=== PATIENT | female | born 1975 | race Caucasian/White ===

== ENCOUNTER 2017-01-01 21:55 | Emergency (ER) | payer OTHER ==
[~2017-01-01] VITALS: Ht 149.9 cm; Wt 122.0 kg
[2017-01-01 21:55] VITALS: BP 131/82
[~2017-01-01 21:55] MED LIST: FLUT10.6 IH; FLUT1DIS3 IH; LOSA25TA4 PO; METF500T4 PO; SPIR25TA3 PO; TOPI25CA6 PO; [UNRECOGNIZED DRUG - OTHER]
--- NOTE | 2017-01-01 23:16 | PHYS DOC ---
Past History Past Medical History: Anxiety, Diabetes, Hypertension Past Surgical History: Other Alcohol Use: None Drug Use: None Adult General Chief Complaint Chief Complaint: PAIN CONTROL HPI HPI Patient is a 41-year-old female who presents here today secondary to a migraine headache. Patient reports that she has a history of chronic lower back pain and history of neck pain. Patient reports that her pain is been increased over the last couple days and she feels that that's exacerbating her migraines. Patient denies any fevers shakes chills nausea vomiting diarrhea cough cold runny nose. Patient reports that the headache is constant. Patient reports identical to her prior migraines. Patient reports that she has multiple allergies. Patient reports that she is to have migraines more frequently however recently they have decreased in intensity and frequency secondary to switching over to a medication called Celebrex. She was told that she should avoid excessive Toradol without. Patient portion of the history of hypertension and diabetes. Patient denies any liver longer kidney problems. Patient does not smoke drink or do drugs. Patient has multiple allergies that have been evaluated. Patient is requesting that she get Toradol and Norflex which has helped her in the past with her migraines. Patient would like to go home sleeping and some rest. Patient reports that she doesn't want any narcotics secondary to severe nausea and vomiting from them. Review of systems: Constitutional: Denies fever or chills Eyes: Denies change in visual acuity, redness, or eye pain HENT: Denies nasal congestion or sore throat All other review systems are negative except as documented in the history of present illness portion. Physical exam: Constitutional: Well developed, well nourished, no acute distress, non-toxic appearance. HENT: Normocephalic, atraumatic, bilateral external ears normal, nose normal. Funduscopic exam Eyes: EOMI, conjunctiva normal, no discharge. Neck: Normal range of motion, no tenderness, supple, no stridor. Cardiovascular:Heart rate regular rhythm Lungs & Thorax: Bilateral breath sounds clear to auscultation no respiratory distress Abdomen: Bowel sounds normal, soft, no tenderness, no masses, no pulsatile masses. Skin: Warm, dry, no erythema, no rash. Back: No tenderness, no CVA tenderness. Extremities: No tenderness, no cyanosis, no clubbing, ROM intact, no edema. Neurologic: Alert and oriented X 3, normal motor function, normal sensory function, no focal deficits noted. Psychologic: Affect normal, judgement normal, mood normal. Assessment and plan: 41-year-old female with a history of migraines presents with a migraine headache. Patient is clinically and hemodynamically stable. Patient was given a shot of Toradol and Norflex IM and reports that she feels slightly improved. Patient will go home and some rest and she will call primary care doctor for assistance in the morning if she has any further problems. Patient does not present with any signs or symptoms of be concerning for a subarachnoid, meningitis, or head trauma. Patient feels comfortable with the plan to be discharged home at this time. Current Medications Current Medications Current Medications Medications (Trade) Dose Ordered Sig/Etselita Start Time Stop Time Status Last Admin Dose Admin Ketorolac Tromethamine (Toradol) 30 mg 1X ONCE 01/01/17 23:30 01/01/17 23:31 Ondansetron HCl (Zofran Odt) 4 mg 1X ONCE 01/01/17 23:30 01/01/17 23:31 Orphenadrine Citrate (Norflex) 60 mg 1X ONCE 01/01/17 23:30 01/01/17 23:31 Allergies Allergies Allergies Coded Allergies Type Severity Reaction Last Updated Verified clindamycin Allergy Severe Anaphylaxis 09/25/15 Yes oxcarbazepine Allergy Severe Swelling 09/25/15 Yes Cephalexin Monohydrate Allergy Intermediate rash 05/08/13 Yes Penicillins Allergy Intermediate Rash 04/27/14 Yes hydrocodone Allergy Intermediate 09/25/15 Yes prochlorperazine edisylate Allergy Intermediate anxiety 05/08/13 Yes prochlorperazine maleate Allergy Intermediate anxiety 05/08/13 Yes sulfamethoxazole Allergy Intermediate rash 05/08/13 Yes trimethoprim Allergy Intermediate rash 05/08/13 Yes Current Patient Data Vital Signs Vital Signs Date Time Temp Pulse Resp B/P (MAP) Pulse Ox O2 Delivery O2 Flow Rate FiO2 01/01/17 21:55 98.3 85 20 98 Room Air EKG EKG [] Radiology/Procedures Radiology/Procedures [] Course & Med Decision Making Course & Med Decision Making Pertinent Labs and Imaging studies reviewed. (See chart for details) [] Dragon Disclaimer Dragon Disclaimer This chart was dictated in whole or in part using Voice Recognition software in a busy, high-work load, and often noisy Emergency Department environment. It may contain unintended and wholly unrecognized errors or omissions. Departure Departure: Impression: Primary Impression: Migraine Additional Impression: Low back pain Referrals: RUBI SMITH MD (PCP) Patient Instructions: Chronic Back Pain, Low Back Sprain with Rehab-[facility], Migraine Headache Additional Instructions: Thank you for allowing us to participate in your care today. Followup with your primary care physician in 3 days if your symptoms do not improve. Call your Primary Doctor tomorrow and inform them of your visit today. If you do not have a primary care provider you can ask for a list of our primary care providers. Return to the emergency department you have any new or concerning findings. This should be evaluated by the primary care physician and any necessary consulting services for continued management within a few days after discharge. Return to emergency room if you have any new or concerning symptoms including but not limited to fever, chills, nausea, vomiting, intractable pain, any new rashes, chest pain, shortness of air, uncontrolled bleeding, difficulty breathing, and/or vision loss. You may have been prescribed medication that can change in your level of thinking and ability to operate machinery. These medications include hydrocodone and Ativan. Also, Benadryl has been known to do this as well. Be sure to check with your pharmacist and ask if the medications you've prescribed can affect your level of consciousness. I recommend not operating heavy machinery or driving while on medication such as these. Problem Qualifiers GORDON KIRKPATRICK MD Jan 01, 2017 23:16
[2017-01-01] MEDS ORDERED: ORPHENADRINE CITRATE 60 MG/2 ML VIAL. IM ONE (23:30)
[2017-01-01] MEDS ORDERED: KETOROLAC 30 MG/ML VIAL. IV ONE (23:30)
[2017-01-01] MEDS ORDERED: ONDANSETRON ODT 4 MG TAB.RAPDIS PO ONE (23:30)
[2017-01-01] MEDS ORDERED: KETOROLAC 30 MG/ML VIAL. IM ONE (23:30)
== END 2017-01-01 23:25 | disposition home or self-care (01) ==
LOC: ER 21:55
DX: G89.29 Other chronic pain (principal); M54.5 Low back pain; G43.909 Migraine, unspecified, not intractable, without status migrainosus; M54.2 Cervicalgia; E11.9 Type 2 diabetes mellitus without complications; F41.9 Anxiety disorder, unspecified; I10 Essential (primary) hypertension; Z88.0 Allergy status to penicillin; Z88.1 Allergy status to other antibiotic agents; Z88.5 Allergy status to narcotic agent; Z88.8 Allergy status to other drugs, medicaments and biological substances
CPT/HCPCS: 96372; 99284; J1885; J2360; Q0162

== ENCOUNTER 2017-02-07 19:21 | Emergency (ER) | payer OTHER ==
[~2017-02-07] VITALS: Ht 149.9 cm; Wt 117.8 kg
[2017-02-07] MEDS ORDERED: LIDOCAINE 4% KIT 4 ML SOLUTION. TP ONE (20:00)
[2017-02-07] MEDS ORDERED: FLUC150T PO (20:24)
[2017-02-07] MEDS ORDERED: PRED-220 PO (20:24)
--- NOTE | 2017-02-07 20:24 | PHYS DOC ---
Past History Past Medical History: Anxiety, Asthma, Diabetes, Hypertension Past Surgical History: Appendectomy, Cholecystectomy, Hysterectomy, Tonsillectomy, Other Alcohol Use: None Drug Use: None Adult General Chief Complaint Chief Complaint: COUGH HPI HPI Patient is a 41 year old female who presents with persistent coughing. She has asthma and caught a "cold" one week ago. Saw her PCP and was started on Levaquin then. No oral steroids. She has been doing her nebulizer treatments 4 times a day. She was given tessalon pearles "but they are not working." No fever. Non productive cough. Review of Systems Review of Systems Constitutional: Denies fever or chills Eyes: Denies change in visual acuity, redness, or eye pain HENT: Denies nasal congestion or sore throat Respiratory: POS cough with shortness of breath and wheezing. No hemoptysis. Cardiovascular: Pos rib pain GI: Denies abdominal pain, nausea, vomiting, bloody stools or diarrhea : Denies dysuria or hematuria Musculoskeletal: Denies back pain or joint pain. Integument: Denies rash or skin lesions Neurologic: Denies headache, focal weakness or sensory changes Current Medications Current Medications Current Medications Medications (Trade) Dose Ordered Sig/Estelita Start Time Stop Time Status Last Admin Dose Admin Lidocaine HCl (Lta Kit) 4 ml 1X ONCE 02/07/17 20:00 02/07/17 20:01 DC Allergies Allergies Allergies Coded Allergies Type Severity Reaction Last Updated Verified clindamycin Allergy Severe Anaphylaxis 09/25/15 Yes oxcarbazepine Allergy Severe Swelling 09/25/15 Yes Cephalexin Monohydrate Allergy Intermediate rash 05/08/13 Yes Penicillins Allergy Intermediate Rash 04/27/14 Yes hydrocodone Allergy Intermediate 09/25/15 Yes prochlorperazine edisylate Allergy Intermediate anxiety 05/08/13 Yes prochlorperazine maleate Allergy Intermediate anxiety 05/08/13 Yes sulfamethoxazole Allergy Intermediate rash 05/08/13 Yes trimethoprim Allergy Intermediate rash 05/08/13 Yes Physical Exam Physical Exam Constitutional: Well developed, well nourished, no acute distress, non-toxic appearance. Constant dry cough. HENT: Normocephalic, atraumatic, bilateral external ears normal, oropharynx moist, no oral exudates, nose normal. Eyes: PERRLA, EOMI, conjunctiva normal, no discharge. Neck: Normal range of motion, no tenderness, supple, no stridor. Cardiovascular:Heart rate regular rhythm, no murmur Lungs & Thorax: Bilateral breath sounds clear to auscultation with good air flow. Some rhonchi but no wheezing. Abdomen: Bowel sounds normal, soft, no tenderness, no masses, no pulsatile masses. Skin: Warm, dry, no erythema, no rash. Back: No tenderness, no CVA tenderness. Extremities: No tenderness, no cyanosis, no clubbing, ROM intact, no edema. Neurologic: Alert and oriented X 3, normal motor function, normal sensory function, no focal deficits noted. Current Patient Data Vital Signs Vital Signs Date Time Temp Pulse Resp B/P (MAP) Pulse Ox O2 Delivery O2 Flow Rate FiO2 02/07/17 19:21 98.1 92 28 100 Room Air Course & Med Decision Making Course & Med Decision Making Evaluated patient. Patient's symptoms are consistent with a viral bronchitis. Do not feel a chest x-ray is indicated at this time. She's had a long history of chest x-rays. Informed her that if she would spike a temperature that would be more indication of secondary bacterial infection. Lidocaine nebulized treatment was dosed here to help break her bronchospasm. We'll place her on a steroid pack. Diflucan was written for yeast infection from the antibiotic. Unfortunately I informed the patient at this no quick fix. These viral illnesses need to run their course and to continue a she's doing. Prednisone 60 mg dosed with with Rx for long taper and Diflucan. I have spoken with the patient and/or caregivers. I have explained the patient' s condition, diagnosis and treatment plan based on the information available to me at this time. I have answered the patient's and/or caregiver's questions and addressed any concerns. The patient and/or caregivers have as good an understanding of the patient's diagnosis, condition and treatment plan as can be expected at this point. The patient's condition is stable and appropriate for discharge from the emergency department. The patient will pursue further outpatient evaluation with the primary care physician or other designated or consulting physician as outlined in the discharge instructions. The patient and/or caregivers are agreeable to this plan of care and follow-up instructions have been explained in detail. The patient and/or caregivers have received these instructions in written format and have expressed an understanding of the discharge instructions. The patient and/or caregivers are aware that any significant change in condition or worsening of symptoms should prompt an immediate return to this or the closest emergency department or a call to 911. Dragon Disclaimer Dragon Disclaimer This chart was dictated in whole or in part using Voice Recognition software in a busy, high-work load, and often noisy Emergency Department environment. It may contain unintended and wholly unrecognized errors or omissions. Departure Departure: Impression: Primary Impression: Bronchospasm with bronchitis, acute Disposition: HOME, SELF-CARE Condition: STABLE Referrals: RUBI SMITH MD (PCP) Patient Instructions: Cough, Adult Scripts Prednisone (PREDNISONE) 10 Mg Tablet 10 MG PO UD for PREDNISONE TAPER, #39 TAB 0 Refills Take 3 tablets by mouth twice a day for 3 days, then take 2 tablets by mouth twice a day for 3 days, then take 1 tablet by mouth twice a day for 3 days, then take 1 tablet by mouth daily x 3 days, then stop. Prov: MACY MANN MD 02/07/17 Fluconazole (DIFLUCAN) 150 Mg Tablet 1 TAB PO ONCE, #1 TAB 1 Refill Prov: MACY MANN MD 02/07/17 MACY MANN MD Feb 07, 2017 20:24
[2017-02-07 20:25] VITALS: BP 126/80
[2017-02-07] MEDS ORDERED: predniSONE 20 MG TABLET PO ONE (20:30)
== END 2017-02-07 20:28 | disposition home or self-care (01) ==
LOC: ER 19:21
DX: J20.9 Acute bronchitis, unspecified (principal); I10 Essential (primary) hypertension; E11.9 Type 2 diabetes mellitus without complications; J45.909 Unspecified asthma, uncomplicated; Z88.1 Allergy status to other antibiotic agents; Z88.5 Allergy status to narcotic agent; Z88.0 Allergy status to penicillin; Z88.8 Allergy status to other drugs, medicaments and biological substances
CPT/HCPCS: 94640; 99283; J7512

== ENCOUNTER 2017-11-22 07:56 | Emergency (ER) | payer SELFPAY ==
[~2017-11-22] VITALS: Ht 149.9 cm; Wt 117.8 kg
[~2017-11-22 07:56] MED LIST changes: +FLUC150T PO; -METF500T4 PO; +METF500T5 PO; +PRED-220 PO; -SPIR25TA3 PO; +SPIR25TA5 PO
[2017-11-22 08:10] VITALS: BP 167/98
[2017-11-22] MEDS ORDERED: TRAM50TA PO (08:17)
[2017-11-22] MEDS ORDERED: LEVO500T59 PO (08:17)
--- NOTE | 2017-11-22 08:36 | ED.ADGEN ---
Past History Past Medical History: Diabetes, Hypertension, Other Past Surgical History: Appendectomy, Hysterectomy Alcohol Use: None Drug Use: None Adult General Chief Complaint Chief Complaint Left ear pain/drainage HPI HPI Patient is a 41 year old female presents with left your pain 3 days and drainage from left ear. Patient has history of chronic otitis media and has a left and left T-tube present that was placed approximately 2 years ago. 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 Also reports submandibular pain. No dental pain, or maxillary pain. Reports discolored otorrhea, only minimal clear fluid present next 2 TM on exam. Over fever chills, nausea vomiting or sweats. Does report occasional migraine triggered by earache. Patient has not been evaluated by her primary care physician or ENT her current symptoms. No other acute symptoms or complaints. Previous hysterectomy. [] Review of Systems Review of Systems ROS as per HPI. All other systems were reviewed and found to be within normal limits, except as documented in this note. Allergies Allergies Allergies Coded Allergies Type Severity Reaction Last Updated Verified clindamycin Allergy Severe Anaphylaxis 09/25/15 Yes oxcarbazepine Allergy Severe Swelling 09/25/15 Yes Cephalexin Monohydrate Allergy Intermediate rash 05/08/13 Yes Penicillins Allergy Intermediate Rash 04/27/14 Yes hydrocodone Allergy Intermediate 09/25/15 Yes prochlorperazine edisylate Allergy Intermediate anxiety 05/08/13 Yes prochlorperazine maleate Allergy Intermediate anxiety 05/08/13 Yes sulfamethoxazole Allergy Intermediate rash 05/08/13 Yes trimethoprim Allergy Intermediate rash 05/08/13 Yes Physical Exam Physical Exam Constitutional: Well developed, well nourished, no acute distress, non-toxic appearance. [] HENT: Normocephalic, atraumatic, bilateral external ears normal, left TM, canal , clear, minimal clear otorrhea next opaque, white thickened, tympanic membrane. T-tube present and appears functional, oropharynx moist, no oral exudates, nose normal. No mastoid tenderness.[] Eyes: PERRLA, EOMI, conjunctiva normal, no discharge. [] Neck: Normal range of motion, no tenderness.[] Lungs & Thorax: Bilateral breath sounds clear to auscultation. [] Current Patient Data Vital Signs Vital Signs Date Time Temp Pulse Resp B/P (MAP) Pulse Ox O2 Delivery O2 Flow Rate FiO2 11/22/17 08:10 97.0 93 20 98 Room Air EKG EKG [] Radiology/Procedures Radiology/Procedures [] Course & Med Decision Making Course & Med Decision Making Pertinent Labs and Imaging studies reviewed. (See chart for details) [Chronic otitis media with effusion and otalgia. Will place on antibiotics with instructions to follow-up with local PCP and ENT physician.] Final Impression Final Impression [1. left otalgia 2.otitis media with effusion] Alia Disclaimer Dragon Disclaimer This electronic medical record was generated, in whole or in part, using a voice recognition dictation system. JOSE MALIN DO Nov 22, 2017 08:36
== END 2017-11-22 08:30 | disposition home or self-care (01) ==
LOC: ER 07:56
DX: H65.492 Other chronic nonsuppurative otitis media, left ear (principal); E11.9 Type 2 diabetes mellitus without complications; I10 Essential (primary) hypertension; H91.8X2 Other specified hearing loss, left ear; Z96.22 Myringotomy tube(s) status; Z88.1 Allergy status to other antibiotic agents; Z88.0 Allergy status to penicillin; Z88.5 Allergy status to narcotic agent; Z88.2 Allergy status to sulfonamides; Z88.8 Allergy status to other drugs, medicaments and biological substances
CPT/HCPCS: 99283

== ENCOUNTER 2018-02-22 10:11 | Emergency (ER) | payer SELFPAY ==
[~2018-02-22] VITALS: Ht 149.9 cm; Wt 122.5 kg
[~2018-02-22 10:11] MED LIST changes: +LEVO500T59 PO; -LOSA25TA4 PO; +LOSA25TA5 PO; +METF500T16 PO; -METF500T5 PO; +TRAM50TA PO
[2018-02-22 10:15] VITALS: BP 137/85
[2018-02-22] MEDS ORDERED: LEVO500T59 PO (10:36)
--- NOTE | 2018-02-22 10:36 | PHYS DOC ---
Past History Past Medical History: Diabetes, Hypertension, Other Additional Past Medical Histor: Obesity Past Surgical History: Appendectomy, Hysterectomy Smoking: Non-smoker Alcohol Use: None Drug Use: None Adult General Chief Complaint Chief Complaint: EARACHE/EAR PAIN HPI HPI Patient is a 42-year-old female who presents to the emergency department for evaluation. She states for the past 3-4 days, she has had bilateral otalgia, a mild sore throat. She has developed a mild cough. She has had problems with ear infections in the past which has had tympanostomy tubes in the past. She has not had any fevers or chills, headache, voice changes, difficult breathing, nausea, vomiting. There are no alleviating, or exacerbating factors to her symptoms. Review of Systems Review of Systems Constitutional: Denies fever or chills [] Eyes: Denies change in visual acuity, redness, or eye pain [] HENT: Denies nasal congestion. Reports sore throat [] Respiratory: Denies productive cough or shortness of breath [] Cardiovascular: The patient denies any shortness of breath, chest pain, palpitations, or orthopnea[] GI: Denies abdominal pain, nausea, vomiting, bloody stools or diarrhea [] Musculoskeletal: Denies back pain or joint pain [] Integument: Denies rash or skin lesions [] Neurologic: Denies headache, focal weakness or sensory changes [] Endocrine: Denies polyuria or polydipsia [] Allergies Allergies Allergies Coded Allergies Type Severity Reaction Last Updated Verified clindamycin Allergy Severe Anaphylaxis 09/25/15 Yes oxcarbazepine Allergy Severe Swelling 09/25/15 Yes Cephalexin Monohydrate Allergy Intermediate rash 05/08/13 Yes Penicillins Allergy Intermediate Rash 04/27/14 Yes hydrocodone Allergy Intermediate 09/25/15 Yes prochlorperazine edisylate Allergy Intermediate anxiety 05/08/13 Yes prochlorperazine maleate Allergy Intermediate anxiety 05/08/13 Yes sulfamethoxazole Allergy Intermediate rash 05/08/13 Yes trimethoprim Allergy Intermediate rash 05/08/13 Yes Physical Exam Physical Exam PHYSICAL EXAM: CONSTITUTIONAL: Well developed, well nourished HEAD: normocephalic, atraumatic EENT: PERRL, EOMI. Conjunctivae normal color, sclerae non-icteric; moist mucous membranes. The oropharynx is nonerythematous. There is mild erythema to the tympanic membrane is bilaterally, right greater than left, mild bulging of the right tympanic membrane. The external auditory canals appear normal bilaterally. There is no mastoid tenderness. NECK: Supple, non-tender; no meningismus. Voice is normal. There is mildly tender right greater than left submandibular lymphadenopathy, without laryngeal tenderness to palpation, or soft tissue masses palpable. LUNGS: Lungs CTA, breathing even and unlabored. Normal air movement. HEART: Regular rate and rhythm, no murmur CHEST: No deformity; non-tender ABDOMEN: The abdomen is soft, and non-tender, no masses or bruits. EXTREM: Normal ROM; no deformity, no calf tenderness. Normal pulses palpable in all extremities. There is no pedal edema. SKIN: No rash; no diaphoresis NEURO: Alert; normal speech and cognition; CN's grossly intact; strength grossly intact without focal deficit. BACK: No CVA TTP. EKG EKG [] Radiology/Procedures Radiology/Procedures [] Course & Med Decision Making Course & Med Decision Making I discussed the diagnosis with the patient, home care plan, and return precautions. She states she has multiple antibiotic allergies and tolerates Levaquin well. Dragon Disclaimer Dragon Disclaimer This electronic medical record was generated, in whole or in part, using a voice recognition dictation system. Departure Departure: Impression: Primary Impression: Otitis media Disposition: HOME, SELF-CARE Condition: STABLE Referrals: RUBI SMITH MD (PCP) Patient Instructions: Otitis Media with Effusion Scripts Levofloxacin (LEVAQUIN) 500 Mg Tablet 1 TAB PO DAILY, #10 TAB Prov: LOIS LOWRY MD 02/22/18 LOIS LOWRY MD Feb 22, 2018 10:36
== END 2018-02-22 10:42 | disposition home or self-care (01) ==
LOC: ER 10:11
DX: H66.93 Otitis media, unspecified, bilateral (principal); J02.9 Acute pharyngitis, unspecified; E11.9 Type 2 diabetes mellitus without complications; I10 Essential (primary) hypertension; Z88.1 Allergy status to other antibiotic agents; Z88.0 Allergy status to penicillin; Z88.5 Allergy status to narcotic agent; Z88.8 Allergy status to other drugs, medicaments and biological substances
CPT/HCPCS: 99283

== ENCOUNTER 2018-06-19 22:41 | Emergency (ER) | payer BC ==
[~2018-06-19] VITALS: Ht 149.9 cm; Wt 120.2 kg
[~2018-06-19 22:41] MED LIST changes: +LOSA25TA11 PO; -LOSA25TA5 PO
--- NOTE | 2018-06-19 22:57 | ED.ADGEN ---
Past History Past Medical History: Anxiety, Asthma, Cancer, Diabetes, High Cholesterol, Hypertension, Hypothyroid, Other Additional Past Medical Histor: Obesity Past Surgical History: Appendectomy, Hysterectomy, Tonsillectomy, Other Smoking: Non-smoker Alcohol Use: None Drug Use: None Adult General Chief Complaint Chief Complaint ".. I was bending over my dog (Patron) cage... he is a 85 lb.pit bull...but I caught my foot and fell forwards... and re- injury to my Lt. wrist that is already broke from Monday...and re-injury to my Lt. wrist that is sprained. ... " HPI HPI Patient is a 42 year old female who presents with above hx of trip and fall with re-injury to both wrists. Patient reports previous sprain of both wrist and fracture and left wrist that occurred Monday. Patient has been wearing a Velcro splint on left wrist. She neurovascular appears to be intact. There is no upper arm tenderness. There is no other reported injury to her upper body or abdomen. Patient does have a history of diabetes,hypothyroid, metabolic syndrome , hypertension, anxiety, asthma,. Patient has had previous hysterectomy and cholecystectomy and appendectomy. Patient normally follows with Dr. Marks Review of Systems Review of Systems Constitutional: Denies fever or chills [] Eyes: Denies change in visual acuity, redness, or eye pain [] HENT: Denies nasal congestion or sore throat [] Respiratory: Denies cough or shortness of breath [] Cardiovascular: No additional information not addressed in HPI [] GI: Denies abdominal pain, nausea, vomiting, bloody stools or diarrhea [] : Denies dysuria or hematuria [] Musculoskeletal: Denies back pain. Complaints of bilateral wrist pain Integument: Denies rash or skin lesions [] Neurologic: Denies headache, focal weakness or sensory changes [] Endocrine: Denies polyuria or polydipsia [] All other systems were reviewed and found to be within normal limits, except as documented in this note. Family History Family History Diabetes and hypertension Current Medications Current Medications See nursing for home medications Allergies Allergies Allergies Coded Allergies Type Severity Reaction Last Updated Verified clindamycin Allergy Severe Anaphylaxis 09/25/15 Yes oxcarbazepine Allergy Severe Swelling 09/25/15 Yes Cephalexin Monohydrate Allergy Intermediate rash 05/08/13 Yes Penicillins Allergy Intermediate Rash 04/27/14 Yes hydrocodone Allergy Intermediate 09/25/15 Yes prochlorperazine edisylate Allergy Intermediate anxiety 05/08/13 Yes prochlorperazine maleate Allergy Intermediate anxiety 05/08/13 Yes sulfamethoxazole Allergy Intermediate rash 05/08/13 Yes trimethoprim Allergy Intermediate rash 05/08/13 Yes Physical Exam Physical Exam Constitutional: in acute distress, non-toxic appearance. [] HENT: Normocephalic, atraumatic, bilateral external ears normal, oropharynx moist, no oral exudates, nose normal. [] Eyes: PERRLA, EOMI, conjunctiva normal, no discharge. [] Neck: Normal range of motion, no tenderness, supple, no stridor. [] Enlarged thyroid. Neck circumference More than 17 inches Cardiovascular: Tachycardia Heart rate regular rhythm, no murmur [] Lungs & Thorax: Bilateral breath sounds clear to auscultation [] Abdomen: Bowel sounds normal, soft, no tenderness, no masses, no pulsatile masses. Obese. Old surgery scars. Skin: Warm, dry, no erythema, no rash. [] Back: No tenderness, no CVA tenderness. [] Extremities: Bilateral wrist tenderness, no cyanosis, no clubbing, ROM intact, bilateral wrist edema. [] Patient has marked point tenderness over right scaphoid area. Neurologic: Alert and oriented X 3, normal motor function, normal sensory function, no focal deficits noted. [] Psychologic: Affect anxious, judgement normal, mood normal. [] Current Patient Data Vital Signs Vital Signs Date Time Temp Pulse Resp B/P (MAP) Pulse Ox O2 Delivery O2 Flow Rate FiO2 06/20/18 00:09 92 18 133/73 (93) 96 Room Air 06/19/18 22:45 98.2 EKG EKG [] Radiology/Procedures Radiology/Procedures My interpretation x-ray show[]bilateral edema and what appears to be chip fx's in both wrists. Patient has no comparison views from previous wrist injury. Course & Med Decision Making Course & Med Decision Making Pertinent Labs and Imaging studies reviewed. (See chart for details). Patient to wear splint. Patient keep wrist elevated above heart. Ice packs as needed. Follow-up with primary. Follow-up orthopedics. Tylenol and ibuprofen for pain. Do not wear rings until all edema has resolved from injury and wrist. Distal neurovascular intact post thumb spica Rt. will use Vicryl splint on left. Left is minimal tender, right wrist primary one with pain. Must keep follow up with orthro. [] Final Impression Final Impression 1. Wrist[]-sprains 2. Wrist fractures Dragon Disclaimer Dragon Disclaimer This electronic medical record was generated, in whole or in part, using a voice recognition dictation system. Dragon Disclaimer This chart was dictated in whole or in part using Voice Recognition software in a busy, high-work load, and often noisy Emergency Department environment. It may contain unintended and wholly unrecognized errors or omissions. Discharge Summary Visit Information Final Diagnosis Problems Medical Problems: (1) Wrist spasm Status: Acute (2) Wrist sprain Status: Acute Brief Hospital Course Allergies Allergies Coded Allergies Type Severity Reaction Last Updated Verified clindamycin Allergy Severe Anaphylaxis 09/25/15 Yes oxcarbazepine Allergy Severe Swelling 09/25/15 Yes Cephalexin Monohydrate Allergy Intermediate rash 05/08/13 Yes Penicillins Allergy Intermediate Rash 04/27/14 Yes hydrocodone Allergy Intermediate 09/25/15 Yes prochlorperazine edisylate Allergy Intermediate anxiety 05/08/13 Yes prochlorperazine maleate Allergy Intermediate anxiety 05/08/13 Yes sulfamethoxazole Allergy Intermediate rash 05/08/13 Yes trimethoprim Allergy Intermediate rash 05/08/13 Yes Vital Signs Vital Signs Date Time Temp Pulse Resp B/P (MAP) Pulse Ox O2 Delivery O2 Flow Rate FiO2 06/20/18 00:09 92 18 133/73 (93) 96 Room Air 06/19/18 22:45 98.2 Brief Hospital Course Ms. Vieira is a 42 old female who presented with hx fall and bilateral wrist sprain and chip fx. Discharge Information Condition at Discharge: Improved, Stable Disposition/Orders: D/C to Home Dischare Medications Active Scripts Active Levaquin (Levofloxacin) 500 Mg Tablet 1 Tab PO DAILY Tramadol Hcl (Tramadol HCl) 50 Mg Tablet 50 Mg PO PRN Q6HRS PRN Levaquin (Levofloxacin) 500 Mg Tablet 1 Tab PO DAILY Prednisone 10 Mg Tablet 10 Mg PO UD Take 3 tablets by mouth twice a day for 3 days, then take 2 tablets by mouth twice a day for 3 days, then take 1 tablet by mouth twice a day for 3 days, then take 1 tablet by mouth daily x 3 days, then stop. Diflucan (Fluconazole) 150 Mg Tablet 1 Tab PO ONCE Reported Topamax (Topiramate) 25 Mg Cap.sprink 25 Mg PO Spironolactone 25 Mg Tablet 25 Mg PO [propranalol] 40 BID Losartan Potassium 25 Mg Tablet 20 Mg PO DAILY Metformin Hcl 500 Mg Tablet 500 Mg PO BID Advair 250-50 Diskus (Fluticasone/Salmeterol) 1 Each Disk.w.dev 1 Each IH DAILY Flovent 44MCG Hfa (Fluticasone Propionate) 10.6 Gm Aer.w.adap 10.6 Gm IH DAILY LENORE CARROLL MD Jun 19, 2018 22:57
[2018-06-20 00:09] VITALS: BP 133/73
--- NOTE | 2018-06-20 07:47 | RAD ---
Examination: 3 views of the bilateral wrists HISTORY: History of fall, pain in the bilateral wrist region COMPARISON: None available. FINDINGS: Left wrist: The alignment of the carpal bones grossly appears unremarkable. There is a small bony density identified dorsal to the wrist joint is seen on the lateral view probably triquetral avulsion fracture. Right wrist: The alignment of the carpal bones grossly appears unremarkable. There is questionable bony density identified dorsal to this joint seen on lateral view could be triquetral avulsion fracture. Impression: Probable bilateral triquetral avulsion fractures. Electronically signed by: Everardo Jones MD (06/20/2018 7:43 AM) [facility]
== END 2018-06-20 00:10 | disposition home or self-care (01) ==
LOC: ER 22:41
DX: S62.112A Displaced fracture of triquetrum [cuneiform] bone, left wrist, initial encounter for closed fracture (principal); S62.111A Displaced fracture of triquetrum [cuneiform] bone, right wrist, initial encounter for closed fracture; E11.9 Type 2 diabetes mellitus without complications; E03.9 Hypothyroidism, unspecified; I10 Essential (primary) hypertension; J45.909 Unspecified asthma, uncomplicated; E88.81 Metabolic syndrome and other insulin resistance; F41.9 Anxiety disorder, unspecified; E78.00 Pure hypercholesterolemia, unspecified; E66.9 Obesity, unspecified; Z68.43 Body mass index [BMI] 50.0-59.9, adult; Z88.1 Allergy status to other antibiotic agents; Z88.8 Allergy status to other drugs, medicaments and biological substances; Z88.2 Allergy status to sulfonamides; Z88.5 Allergy status to narcotic agent; W18.30XA Fall on same level, unspecified, initial encounter; Y93.89 Activity, other specified; Y92.89 Other specified places as the place of occurrence of the external cause; Y99.8 Other external cause status
CPT/HCPCS: 29125; 73110; 99283

== ENCOUNTER 2019-07-20 23:48 | Emergency (ER) | payer SELFPAY ==
[~2019-07-20] VITALS: Ht 149.9 cm; Wt 106.3 kg
[2019-07-20 23:50] VITALS: BP 148/87
[2019-07-21] MEDS ORDERED: LEVO750T31 PO (00:06)
[2019-07-21] MEDS ORDERED: BUTA1TAB23 PO (00:06)
--- NOTE | 2019-07-21 00:07 | PHYS DOC ---
Past History Past Medical History: Anxiety, Asthma, Cancer, Diabetes, High Cholesterol, Hypertension, Hypothyroid, Other Additional Past Medical Histor: Obesity, chronic sinusitis Past Surgical History: Appendectomy, Hysterectomy, Tonsillectomy, Other Additional Past Surgical Histo: sinus surgery Smoking: Non-smoker Alcohol Use: None Drug Use: None Adult General Chief Complaint Chief Complaint: COUGH HPI HPI 43-year-old female presents with 2 week history of facial pain and nasal congestion. Patient reports she is blowing out green thick "snot". Reports was recently seen at [place] and given one week's worth of doxycycline. Reports no improvement of symptoms. Reports subjective fever and chills. Denies trauma. Reports associated headache. Review of Systems Review of Systems Constitutional: Reports subjective fever and chills Eyes: Denies redness or eye pain HENT: Reports nasal congestion and sinus pressure Respiratory: Reports cough; denies shortness of breath Cardiovascular: Denies chest pain or palpitations GI: Denies abdominal pain, nausea, or vomiting : Denies dysuria or hematuria Musculoskeletal: Denies back pain or joint pain Integument: Denies rash or skin lesions Neurologic: Denies headache, focal weakness or sensory changes Complete systems were reviewed and found to be within normal limits, except as documented in this note. Allergies Allergies Allergies Coded Allergies Type Severity Reaction Last Updated Verified clindamycin Allergy Severe Anaphylaxis 09/25/15 Yes oxcarbazepine Allergy Severe Swelling 09/25/15 Yes Cephalexin Monohydrate Allergy Intermediate rash 05/08/13 Yes Penicillins Allergy Intermediate Rash 04/27/14 Yes hydrocodone Allergy Intermediate 09/25/15 Yes prochlorperazine edisylate Allergy Intermediate anxiety 05/08/13 Yes prochlorperazine maleate Allergy Intermediate anxiety 05/08/13 Yes sulfamethoxazole Allergy Intermediate rash 05/08/13 Yes trimethoprim Allergy Intermediate rash 05/08/13 Yes Physical Exam Physical Exam Constitutional: Well developed, well nourished, no acute distress, non-toxic appearance, obese HENT: Normocephalic, atraumatic, oropharynx moist, sinus congestion and maxillary sinus tenderness on palpation, TMs clear, pharynx without erythema Eyes: PERRL, EOMI, conjunctiva normal, no discharge Neck: Normal range of motion, no tenderness, supple, no meningeal signs Cardiovascular: Heart rate normal, regular rhythm Lungs & Thorax: Bilateral breath sounds clear to auscultation, no wheezing Skin: Warm, dry, no erythema, no rash Extremities: No tenderness, ROM intact, no edema Neurologic: Alert and oriented X 3, normal motor function, normal sensory fu nction, no focal deficits noted, Psychologic: Affect normal, judgment normal EKG EKG [] Radiology/Procedures Radiology/Procedures [] Course & Med Decision Making Course & Med Decision Making Patient presents with acute on chronic sinus pressure and pain with history of chronic sinusitis. Reports associated headache. Patient neurologically intact. No history of trauma. History of diabetes. Empiric steroid provided. Will prescribe empiric antibiotic. Headache addressed. Patient stable for discharge with outpatient follow-up with PCP/ENT. Discussed findings and plan with patient, who acknowledges understanding and agreement. Dragon Disclaimer Robertaon Disclaimer This electronic medical record was generated, in whole or in part, using a voice recognition dictation system. Departure Departure: Impression: Primary Impression: Headache Additional Impression: Sinusitis Disposition: HOME, SELF-CARE Condition: STABLE Referrals: RUBI SMITH MD (PCP) Patient Instructions: Headache, FAQs, Sinusitis, [id number] Scripts Butalb/Acetaminophen/Caffeine ([id number] 50-325-40) 1 Each Tablet 1 EACH PO Q6HRS PRN for HEADACHE, #10 TAB Prov: JOSE GABRIEL DO 07/21/19 Levofloxacin (LEVAQUIN) 750 Mg Tablet 1 TAB PO DAILY for Sinusitis for 7 Days, #7 TAB 0 Refills Prov: JOSE GABRIEL DO 07/21/19 Problem Qualifiers Primary Impression: Headache Headache type: unspecified Headache chronicity pattern: acute headache Intractability: not intractable Qualified Codes: R51 - Headache Additional Impression: Sinusitis Sinusitis location: unspecified location Chronicity: acute Recurrence: recurrent Qualified Codes: J01.91 - Acute recurrent sinusitis, unspecified JOSE GABRIEL DO Jul 21, 2019 00:07
[2019-07-21] MEDS ORDERED: DEXAMETHASONE 4 MG TABLET PO ONE (00:15)
[2019-07-21] MEDS ORDERED: BUTALB/APAP/CAFEIN 50/325/40MG TABLET. PO ONE (00:15)
[2019-07-21] MEDS ORDERED: DEXAMETHASONE 4 MG TABLET ONE (00:16)
[2019-07-21] MEDS ORDERED: BUTALB/APAP/CAFEIN 50/325/40MG TABLET. ONE (00:16)
== END 2019-07-21 00:20 | disposition home or self-care (01) ==
LOC: ER 23:48
DX: J01.91 Acute recurrent sinusitis, unspecified (principal); J45.909 Unspecified asthma, uncomplicated; E11.9 Type 2 diabetes mellitus without complications; E78.00 Pure hypercholesterolemia, unspecified; I10 Essential (primary) hypertension; E03.9 Hypothyroidism, unspecified; E66.9 Obesity, unspecified; Z68.41 Body mass index [BMI] 40.0-44.9, adult; Z88.1 Allergy status to other antibiotic agents; Z88.8 Allergy status to other drugs, medicaments and biological substances; Z88.2 Allergy status to sulfonamides; Z88.5 Allergy status to narcotic agent
CPT/HCPCS: 99283; J8540

== ENCOUNTER 2019-10-29 18:54 | Emergency (ER) | payer SELFPAY ==
[~2019-10-29] VITALS: Ht 149.9 cm; Wt 106.3 kg
[~2019-10-29 18:54] MED LIST changes: +BUTA1TAB23 PO; +LEVO750T31 PO
[2019-10-29 18:55] VITALS: BP 149/81
[2019-10-29] MEDS ORDERED: traMADol 50 MG TABLET PO ONE (19:15)
--- NOTE | 2019-10-29 19:21 | PHYS DOC ---
Past History Past Medical History: Anxiety, Asthma, Cancer, Diabetes, High Cholesterol, Hypertension, Hypothyroid, Other Additional Past Medical Histor: Obesity, chronic sinusitis Past Surgical History: Appendectomy, Hysterectomy, Tonsillectomy, Other Additional Past Surgical Histo: sinus surgery Smoking: Non-smoker Alcohol Use: None Drug Use: None General Adult EDM: Chief Complaint: UPPER EXTREMITY INJURY HPI: HPI: Patient is a 43 year old female who presents for evaluation of left hand and wrist injury after a mechanical fall. She had been carrying some heavy metal shelves when she fell onto the concrete. She has minor scrapes to both knees and her right wrist as well. She cannot move her wrist due to significant pain however. There is no visible deformity present. Patient denies other injuries including hitting her head or having any neck pain. Review of Systems: Review of Systems: Constitutional: Denies fever or chills Eyes: Denies change in visual acuity HENT: Denies nasal congestion or sore throat Respiratory: Denies cough or shortness of breath Cardiovascular: Denies chest pain or edema GI: Denies abdominal pain, nausea, vomiting, bloody stools or diarrhea : Denies dysuria Musculoskeletal: Denies back pain has left hand and joint pain Integument: Denies rash Neurologic: Denies headache, focal weakness or sensory changes Endocrine: Denies polyuria or polydipsia Lymphatic: Denies swollen glands Psychiatric: Denies depression or anxiety Heart Score: Risk Factors: Risk Factors: DM, Current or recent (<one month) smoker, HTN, HLP, family history of CAD, obesity. Risk Scores: Score 0 - 3: 2.5% MACE over next 6 weeks - Discharge Home Score 4 - 6: 20.3% MACE over next 6 weeks - Admit for Clinical Observation Score 7 - 10: 72.7% MACE over next 6 weeks - Early Invasive Strategies Current Medications: Current Meds: Current Medications Medications (Trade) Dose Ordered Sig/Estelita Start Time Stop Time Status Last Admin Dose Admin Tramadol HCl (Ultram) 50 mg 1X ONCE 10/29/19 19:15 10/29/19 19:17 DC Allergies: Allergies: Allergies Coded Allergies Type Severity Reaction Last Updated Verified clindamycin Allergy Severe Anaphylaxis 09/25/15 Yes oxcarbazepine Allergy Severe Swelling 09/25/15 Yes Cephalexin Monohydrate Allergy Intermediate rash 05/08/13 Yes Penicillins Allergy Intermediate Rash 04/27/14 Yes hydrocodone Allergy Intermediate 09/25/15 Yes prochlorperazine edisylate Allergy Intermediate anxiety 05/08/13 Yes prochlorperazine maleate Allergy Intermediate anxiety 05/08/13 Yes sulfamethoxazole Allergy Intermediate rash 05/08/13 Yes trimethoprim Allergy Intermediate rash 05/08/13 Yes furosemide Allergy Mild 07/21/19 Yes iodine Allergy Mild 07/21/19 Yes latex Allergy Mild 07/21/19 Yes Uncoded Allergies Type Severity Reaction Last Updated Verified trile Allergy Mild 07/21/19 Physical Exam: PE: Constitutional: Well developed, well nourished, mild acute distress, non-toxic appearance. [] HENT: Normocephalic, atraumatic, bilateral external ears normal, oropharynx moist, no oral exudates, nose normal. [] Eyes: PERRL, EOMI, conjunctiva normal, no discharge. [] Neck: Normal range of motion, no tenderness, supple, no stridor. [] Cardiovascular:Heart rate regular rhythm, no murmur [] Lungs & Thorax: Bilateral breath sounds clear to auscultation [] Abdomen: Bowel sounds normal, soft, no tenderness, no masses, no pulsatile masses. [] Skin: Warm, dry, no erythema, no rash. [] Back: No tenderness, no CVA tenderness. [] Extremities: Moderate tenderness left wrist and hand, no cyanosis, no clubbing, ROM diminished due to pain, mild edema. [] Neurologic: Alert and oriented X 3, normal motor function, normal sensory function, no focal deficits noted. [] Psychologic: Affect normal, judgement normal, mood normal. [] Current Patient Data: Vital Signs: Vital Signs Date Time Temp Pulse Resp B/P (MAP) Pulse Ox O2 Delivery O2 Flow Rate FiO2 10/29/19 18:55 98.1 105 18 149/81 (103) 98 Room Air EKG: EKG: [] Radiology/Procedures: Radiology/Procedures: [address] [address] IMAGING REPORT Signed PATIENT: OKSANA LARSON ACCOUNT: [id number] : 1975 LOCATION: ER AGE: 43 SEX: F EXAM STATUS: REG ER ORD. PHYSICIAN: JAVY HOUSTON DO REASON: Left wrist and hand pain, fall, injury today PROCEDURE: HAND LEFT 3V EXAM: Left hand and wrist, 3 views. HISTORY: Pain. Fall. COMPARISON: 06/19/2018. FINDINGS: 3 views of the left hand and wrist are obtained. There is a small ossicle along the dorsal aspect of the carpal bones, is a chronic nonunited triquetral fracture fragment. No acute fracture is seen. Alignment and joint spaces are unremarkable. There is no radiodense foreign body. IMPRESSION: 1. No acute osseous finding. 2. Chronic nonunited triquetral fracture fragment. Electronically signed by: Brunilda Boo MD (10/29/2019 7:34 PM) [facility] DICTATED AND SIGNED BY: BRUNILDA BOO MD DATE: 10/29/191933 CC: ZUHAIR LE DO; JAVY HOUSTON DO ~ [] Course & Med Decision Making: Course & Med Decision Making Pertinent Labs and Imaging studies reviewed. (See chart for details) [] Dragon Disclaimer: Dragon Disclaimer: This electronic medical record was generated, in whole or in part, using a voice recognition dictation system. 1941 stable, prefab wrist/volar splint applied. Patient neurovascularly intact before and after the splint was applied. Close follow-up recommended Departure Departure: Impression: Primary Impression: Contusion of left hand, initial encounter Disposition: HOME/RESIDENCE PRIOR TO ADM Condition: STABLE Referrals: ZUHAIR LE DO (PCP) Patient Instructions: Hand Contusion Additional Instructions: Rest, ice and elevate the injured left wrist, use medication as directed Scripts Naproxen (NAPROSYN) 500 Mg Tablet 1 TAB PO BID for pain for 15 Days, #30 TAB 0 Refills Prov: JAVY HOUSTON DO 10/29/19 Justification of Admission: Justification of Admission: Justification of Admission Dx: N/A JAVY HOUSTON DO Oct 29, 2019 19:21
--- NOTE | 2019-10-29 19:36 | RAD ---
EXAM: Left hand and wrist, 3 views. HISTORY: Pain. Fall. COMPARISON: 06/19/2018. FINDINGS: 3 views of the left hand and wrist are obtained. There is a small ossicle along the dorsal aspect of the carpal bones, is a chronic nonunited triquetral fracture fragment. No acute fracture is seen. Alignment and joint spaces are unremarkable. There is no radiodense foreign body. IMPRESSION: 1. No acute osseous finding. 2. Chronic nonunited triquetral fracture fragment. Electronically signed by: Brunilda Gonzalez MD (10/29/2019 7:34 PM) [facility]
[2019-10-29] MEDS ORDERED: NAPR-683 PO (19:46)
== END 2019-10-29 19:49 | disposition home or self-care (01) ==
LOC: ER 18:54
DX: S60.222A Contusion of left hand, initial encounter (principal); J45.909 Unspecified asthma, uncomplicated; E11.9 Type 2 diabetes mellitus without complications; E78.00 Pure hypercholesterolemia, unspecified; I10 Essential (primary) hypertension; E03.9 Hypothyroidism, unspecified; Z88.0 Allergy status to penicillin; Z88.1 Allergy status to other antibiotic agents; Z88.5 Allergy status to narcotic agent; Z91.040 Latex allergy status; Z88.8 Allergy status to other drugs, medicaments and biological substances; Z88.2 Allergy status to sulfonamides; W18.02XA Striking against glass with subsequent fall, initial encounter; Y93.89 Activity, other specified; Y92.89 Other specified places as the place of occurrence of the external cause; Y99.8 Other external cause status
CPT/HCPCS: 29125; 73110; 73130; 99284

== ENCOUNTER 2020-07-10 19:25 | Emergency (ER) | payer SELFPAY ==
[~2020-07-10] VITALS: Ht 149.9 cm; Wt 106.3 kg
[~2020-07-10 19:25] MED LIST changes: +NAPR-683 PO
--- NOTE | 2020-07-10 19:30 | PHYS DOC ---
Past History Past Medical History: Anxiety, Asthma, Cancer, Diabetes, High Cholesterol, Hypertension, Hypothyroid, Other Additional Past Medical Histor: Obesity, chronic sinusitis Past Surgical History: Appendectomy, Hysterectomy, Tonsillectomy, Other Additional Past Surgical Histo: sinus surgery Smoking: Non-smoker Alcohol Use: None Drug Use: None General Adult HPI: HPI: ".. I got messed up sinus.. had surgery twice.. and Alissa West my ENT says I need a facial re construction surgery...".. " I still have four days of Levaquin left... but the congestion is so bad.. it giving me a sinus or migraine..." Patient is a 44 year old female who presents with above hx and complaints sinus pain and sinus head ache or sinus migraine... Patient has had chronic sinus issues and 2 previous ENT surgeries. Patient's primary area of pain or discomfort today as left facial pain and does have some tenderness of nodes and neck. Patient has been advised by her ENT Dr. West that she needs to see a specialist for reconstruction. Patient has 4 days left on her Levaquin prescription. Has reportedly been using normal saline and Flonase sprays. Patient has follow-up primary Dr. Dover. Patient has past medical history of anxiety, asthma, cancer, diabetes, hyper cholesterol, hypertension, hypothyroidism, Raynaud's disease or syndrome, chronic sinusitis, obesity and migraines. Patient last seen for exacerbation of her sinusitis in the emergency room on 07/20/2019. No recent travel. No specific ill contacts. No history immunosuppression. Review of Systems: Review of Systems: Constitutional: Denies fever or chills Eyes: Denies change in visual acuity HENT: Complains of nasal congestion, facial pain, sinus headache Respiratory: Denies cough or shortness of breath Cardiovascular: Denies chest pain or edema GI: Denies abdominal pain, nausea, vomiting, bloody stools or diarrhea : Denies dysuria Musculoskeletal: Denies back pain or joint pain Integument: Denies rash Neurologic: Complains of sinus headache,. Denies focal weakness or sensory changes Endocrine: Denies polyuria or polydipsia Lymphatic: Denies swollen glands Psychiatric: Denies depression or anxiety Family History: Family History: Noncontributory to presentation Current Medications: Current Meds: See nursing for home meds Allergies: Allergies: Allergies Coded Allergies Type Severity Reaction Last Updated Verified clindamycin Allergy Severe Anaphylaxis 09/25/15 Yes oxcarbazepine Allergy Severe Swelling 09/25/15 Yes Cephalexin Monohydrate Allergy Intermediate rash 05/08/13 Yes Penicillins Allergy Intermediate Rash 04/27/14 Yes hydrocodone Allergy Intermediate 09/25/15 Yes prochlorperazine edisylate Allergy Intermediate anxiety 05/08/13 Yes prochlorperazine maleate Allergy Intermediate anxiety 05/08/13 Yes sulfamethoxazole Allergy Intermediate rash 05/08/13 Yes trimethoprim Allergy Intermediate rash 05/08/13 Yes furosemide Allergy Mild 07/21/19 Yes iodine Allergy Mild 07/21/19 Yes latex Allergy Mild 07/21/19 Yes Uncoded Allergies Type Severity Reaction Last Updated Verified trile Allergy Mild 07/21/19 Physical Exam: PE: Constitutional: Moderate acute distress, non-toxic appearance. [] HENT: Normocephalic, atraumatic, bilateral external ears normal, oropharynx moist, no oral exudates, nose swollen turbinates and clear rhinorrhea .[] Postnasal drainage. Frontal and maxillary sinus tenderness on percussion bilaterally but more on the left Eyes: PERRLA, EOMI, conjunctiva normal, no discharge. [] Neck: Normal range of motion, no tenderness, supple, no stridor. [] Cardiovascular:Heart rate regular rhythm, no murmur [] Lungs & Thorax: Bilateral breath sounds equal apex on auscultation [] Abdomen: Bowel sounds normal, soft, no tenderness, no masses, no pulsatile masses. Obese. Multiple surgery scars Skin: Warm, dry, no erythema, no rash. [] Back: No tenderness, no CVA tenderness. [] Extremities: No tenderness, no cyanosis, no clubbing, ROM intact, no edema. [] Neurologic: Alert and oriented X 3, normal motor function, normal sensory function, no focal deficits noted. [] DTRs +2. Photo Finish Photographer equal. Amatory without problems. Psychologic: Affect anxious, judgement normal, mood normal. [] EKG: EKG: [] Radiology/Procedures: Radiology/Procedures: [] Heart Score: Risk Factors: Risk Factors: DM, Current or recent (<one month) smoker, HTN, HLP, family history of CAD, obesity. Risk Scores: Score 0 - 3: 2.5% MACE over next 6 weeks - Discharge Home Score 4 - 6: 20.3% MACE over next 6 weeks - Admit for Clinical Observation Score 7 - 10: 72.7% MACE over next 6 weeks - Early Invasive Strategies Course & Med Decision Making: Course & Med Decision Making Pertinent Labs and Imaging studies reviewed. (See chart for details) Continue Afrin 2 sprays at night, normal saline rinses four times a day and as needed, Flonase 2 sprays each nostril at night, continue the Levaquin daily. Would start a course of prednisone for 5 days. Would continue the meclizine as needed. Follow-up primary care. Return if any concerns. However problem appears to be need of reconstruction of sinus per history and will need to see the specialist for this issue. Trial of tramadol for marked pain. Impression: 1.. Chronic sinusitis-history need to repeat reconstructive sinus and facial surgery 2. Raynaud's 3. Migraines [] Dragon Disclaimer: Dragon Disclaimer: This electronic medical record was generated, in whole or in part, using a voice recognition dictation system. Departure Departure: Referrals: ZUHAIR DOVER DO (PCP) Scripts Ciprofloxacin Hcl (CIPROFLOXACIN HCL) 500 Mg Tablet 500 MG PO BID for sinusitis for 14 Days, #28 TAB Prov: LENORE CARROLL MD 07/10/20 Prednisone (PREDNISONE) 50 Mg Tablet 50 MG PO DAILY for sinus for 5 Days, #5 TAB Prov: LENORE CARROLL MD 07/10/20 Tramadol HCl (Tramadol HCl) 100 Mg Tablet 100 MG PO QIDPRN PRN for marked pain, #30 TAB Prov: LENORE CARROLL MD 07/10/20 Dragon Disclaimer This chart was dictated in whole or in part using Voice Recognition software in a busy, high-work load, and often noisy Emergency Department environment. It may contain unintended and wholly unrecognized errors or omissions. LENORE CARROLL MD Jul 10, 2020 19:30
[2020-07-10 19:48] VITALS: BP 163/94
[2020-07-10] MEDS ORDERED: predniSONE 10 MG TABLET PO ONE ×2 (20:00→20:15)
[2020-07-10] MEDS ORDERED: TRAM100T36 PO (20:05)
[2020-07-10] MEDS ORDERED: PRED50TA PO (20:08)
[2020-07-10] MEDS ORDERED: CIPR500T2 PO (20:08)
[2020-07-10] MEDS ORDERED: traMADol 50 MG TABLET PO ONE (20:15)
== END 2020-07-10 20:30 | disposition home or self-care (01) ==
LOC: ER 19:25
DX: J32.9 Chronic sinusitis, unspecified (principal); G43.909 Migraine, unspecified, not intractable, without status migrainosus; I73.00 Raynaud's syndrome without gangrene; R09.81 Nasal congestion; F41.9 Anxiety disorder, unspecified; J45.909 Unspecified asthma, uncomplicated; E11.9 Type 2 diabetes mellitus without complications; I10 Essential (primary) hypertension; E03.9 Hypothyroidism, unspecified; Z90.89 Acquired absence of other organs; Z90.710 Acquired absence of both cervix and uterus; Z98.890 Other specified postprocedural states; Z88.1 Allergy status to other antibiotic agents; Z88.0 Allergy status to penicillin; Z91.040 Latex allergy status; Z88.8 Allergy status to other drugs, medicaments and biological substances; Z88.2 Allergy status to sulfonamides; Z88.5 Allergy status to narcotic agent
CPT/HCPCS: 99283; J7512